=== PATIENT | female | born 1980 | race Caucasian/White ===

== ENCOUNTER 2019-06-05 11:45 | Inpatient (IN) | payer OTHER ==
[2019-06-05] VITALS (48 sets, daily range): BP systolic 57–159; BP diastolic 27–94
[~2019-06-05] VITALS: Ht 160 cm; Wt 74.1 kg
--- NOTE | 2019-06-05 12:15 | NUR ---
SPOKE WITH HUSSAIN AT [facility], INFORMATION FROM HIM CONVEYED TO ER PROVIDER, HE WILL ALSO FAX INFORMATION ON HIGH INSULIN HIGH DEXTROSE PROTOCOL FOR CALCIUM CHANNEL ROSA M OVERDOSE THAT IS NON-RESPONSIVE TO OTHER TREATMENT.
[2019-06-05 12:47] LABS: BASOPHILS 0.4 % (0-2); EOSINOPHILS 1.3 % (0-7); HEMATOCRIT 35.2 % (36.0-48.0); HEMOGLOBIN 11.3 g/dL (12-16); IMMATURE GRANULOCYTES 0.3 % (0-5); MCH 29.7 pg (26.0-34.0); MCHC 32.1 g/dL (31.0-37.0); MCV 92.4 fL (80.0-100.0); MEAN PLATELET VOLUME 9.2 fL (7.4-10.4); MONOCYTES 9.3 % (2-11); NEUTROPHILS 70.7 % (40-80); RBC 3.81 10x6/uL (4.00-5.40); RDW 13.8 % (11.5-14.5); WBC 14.2 10x3/uL (4.8-10.8)
--- NOTE | 2019-06-05 12:50 | NUR ---
THE PATIENT'S MENTAL STATUS HAS BEEN DECLINING, SHE IS NOW FALLING ASLEEP WHEN NOT DIRECTLY ENGAGED AND IS UNABLE TO FOLLOW DIRECTIONS, WHEN HER BP CUFF INFLATES SHE BECOMES COMBATIVE AND THRASHES IN THE BED, SHE IS MAINTAING HER AIRWAY, ER PROVIDER NOTIFIED OF CHANGE IN MENTAL STATUS.
[2019-06-05 12:51] LABS: ANION GAP 19.5 mmol/L (8-16); CALCIUM 8.7 mg/dL (8.5-10.1); CARBON DIOXIDE 19.1 mmol/L (21.0-32.0); CREATININE - SERUM 2.4 mg/dL (0.6-1.3); POTASSIUM - SERUM 3.6 mmol/L (3.5-5.1)
[2019-06-05 12:52] LABS: PLATELET COUNT 445 10x3/uL (130-400)
[2019-06-05 12:57] LABS: ACETAMINOPHEN 11.1 ug/mL (10.0-30.0); ALBUMIN 3.6 g/dL (3.4-5.0); BILIRUBIN - TOTAL 0.3 mg/dL (0.2-1.3)
--- NOTE | 2019-06-05 13:30 | NUR ---
AT THIS POINT THE PATIENT IS NOT RESPONSIVE TO STIMULI, HOWEVER SHE IS COMBATIVE AND WILL OPEN HER EYES WHEN TRYING TO RE-POSITION HERSELF, SHE IS IN A HEAD DOWN POSITION AT THIS TIME TO TRY AND MANAGE BLOOD PRESSURE, BUT SHE IS NOT TOLERATING WELL AND TRYING TO FIGHT STAFF, SHE CAN NOT BE RE-DIRECTED OR RE ORIENTED, HER RESPIRATIONS ARE EVEN AND UNLABORED, HER PULSE IS IN THE 30'S AND THE ER PROVIDER IS IN THE ROOM AT THIS TIME, WILL AWAIT FURTHER ORDERS.
[2019-06-05 13:51] LABS: UDS - AMPHET NEGATIVE QUAL (NEGATIVE); UDS - BARB NEGATIVE QUAL (NEGATIVE); UDS - BENZO POSITIVE QUAL (NEGATIVE); UDS - COCAINE NEGATIVE QUAL (NEGATIVE); UDS - OPIATE POSITIVE QUAL (NEGATIVE); UDS - PCP NEGATIVE QUAL (NEGATIVE); UDS - THC NEGATIVE QUAL (NEGATIVE)
[2019-06-05 14:12] LABS: BILIRUBIN NEGATIVE (NEGATIVE); GLUCOSE NEGATIVE (NEGATIVE); KETONE NEGATIVE (NEGATIVE); NITRITE NEGATIVE (NEGATIVE); UROBILINOGEN NORMAL (NORMAL)
[2019-06-05 14:13] LABS: RED CELLS - URINE RARE /hpf (0-5)
[2019-06-05 14:14] LABS: BACTERIA MODERATE /hpf (NEGATIVE); EPITHELIAL CELLS OCC /hpf (0-5); WHITE CELLS - URINE >50 /hpf (NEGATIVE)
--- NOTE | 2019-06-05 14:30 | NUR ---
ATTEMPTED EXTERNAL PACING WITH ANOTHER RN AND THE ER PROVIDER, UNABLE TO GET A CAPTURE AND PULSE TO MATCH THE SET RATE, THE PADS WERE LEFT ON THE PATIENT, BUT THE PACING WAS TURNED OFF AT THIS TIME, WILL AWAIT FURTHER ORDERS.
--- NOTE | 2019-06-05 16:12 | NUR ---
GLUCOSE 185 PRIOR TO INITIATION OF GLUCOSE AND INSULIN
--- NOTE | 2019-06-05 17:30 | NUR ---
PT RECEIVED FROM ER TO 2316. ON VENT. OGT. PT HAS RIGHT PICC AND 3 PIVS. MULTIPLE IV DRIPS, PER EMAR.
--- NOTE | 2019-06-05 18:00 | NUR ---
PUPILS REACTIVE AND SLUGGISH.
[2019-06-05 20:00] LABS: CREATININE - SERUM 2.2 mg/dL (0.6-1.3); POTASSIUM - SERUM 3.4 mmol/L (3.5-5.1)
--- NOTE | 2019-06-05 20:08 | NUR ---
PT VOMITTING/GAGGING, REACHING FOR ETT. CLOTH DYE RANGE OPERATOR SALES PROMOTION REPRESENTATIVE PAGED.
[2019-06-05 20:16] LABS: ANION GAP 20.1 mmol/L (8-16); CARBON DIOXIDE 13.3 mmol/L (21.0-32.0)
[2019-06-05 20:18] LABS: CALCIUM 13.1 mg/dL (8.5-10.1)
--- NOTE | 2019-06-05 20:44 | NUR ---
SWETHA PAGED PER PHYSICIAN CONSULT
--- NOTE | 2019-06-05 20:50 | NUR ---
LAB CONTACTED ABOUT Q30MIN SERUM POTASSIUM ORDERS.
--- NOTE | 2019-06-05 20:53 | NUR ---
REC'D CALLBACK FROM [facility], NEW ORDERS GIVEN, SEE MAR.
--- NOTE | 2019-06-05 22:20 | NUR ---
[facility]D CALL [facility], UPDATE PROVIDED.
--- NOTE | 2019-06-05 22:54 | NUR ---
HOUSE SUPERVISIOR CONTACTED AT THIS TIME REGARDING NEW ABX ORDER, PHARMACY IS CLOSED.
--- NOTE | 2019-06-05 23:20 | NUR ---
JASWINDER PAGED AT THIS TIME. PT VOMITTING-YELLOW EMESIS, GAGGING AND REACHING FOR ETT. MINIMAL SEDATION INFUSING, BILATERAL WRIST RESTRAINTS IN USE. 1:1 NURSING.
--- NOTE | 2019-06-05 23:50 | NUR ---
SECOND PAGE TO JASWINDER AT THIS TIME.
[2019-06-06] VITALS (91 sets, daily range): BP systolic 86–127; BP diastolic 35–91; Ht 160 cm; Wt 74.1 kg
--- NOTE | 2019-06-06 00:10 | NUR ---
PLASTIC SURGERY ASSISTANT ANTONY CHRISTOPHER, AT BEDSIDE. SEE MAR FOR NEW MED ORDER.
--- NOTE | 2019-06-06 00:40 | NUR ---
POTASSIUM REMAINS CRITICALLY LOW, CONTINUING POTASSIUM INFUSIONS PER PROTOCOL. ASHWIN HARDY AT BEDSIDE.
--- NOTE | 2019-06-06 03:00 | NUR ---
REASSESSMENT COMPLETE, SEE FLOWSHEET FOR ALL FINDINGS. ORAL CARE PROVIDED. PT REPOSITIONED. PRESSORS INFUSING, VSS. NO S/S OF PAIN. 1:1 NURSING.
[2019-06-06 04:18] LABS: BASOPHILS 0 % (0-2); EOSINOPHILS 0 % (0-7); IMMATURE GRANULOCYTES 0.3 % (0-5); LYMPHOCYTES 8.1 % (15-50); MCH 29.6 pg (26.0-34.0); MCHC 29.3 g/dL (31.0-37.0); MEAN PLATELET VOLUME 8.7 fL (7.4-10.4); NEUTROPHILS 85.6 % (40-80); RDW 13.7 % (11.5-14.5); WBC 13.3 10x3/uL (4.8-10.8)
[2019-06-06 04:22] LABS: HEMOGLOBIN 8.5 g/dL (12-16); PLATELET COUNT 291 10x3/uL (130-400); RBC 2.87 10x6/uL (4.00-5.40)
--- NOTE | 2019-06-06 04:30 | NUR ---
COMPLETE CHG BATH AND LINEN CHANGE PROVIDED.
[2019-06-06 06:40] LABS: ALBUMIN 2.5 g/dL (3.4-5.0); ANION GAP 13.6 mmol/L (8-16); BILIRUBIN - TOTAL 0.3 mg/dL (0.2-1.3); CALCIUM 10.8 mg/dL (8.5-10.1); CARBON DIOXIDE 19.9 mmol/L (21.0-32.0); CREATININE - SERUM 1.6 mg/dL (0.6-1.3); MAGNESIUM - SERUM 1.2 mg/dL (1.8-2.4); PHOSPHOROUS 1.7 mg/dL (2.5-4.9); PROTEIN - SERUM 5.5 g/dL (6.4-8.2)
[2019-06-06 06:41] LABS: POTASSIUM - SERUM 2.5 mmol/L (3.5-5.1)
--- NOTE | 2019-06-06 07:38 | NUR ---
DR GUTIERREZ PAGED FOR CVL PLACEMENT AND MICAELA PLACEMENT.
--- NOTE | 2019-06-06 07:54 | NUR ---
SPOKE WITH KIMBERLY MEJIA. CONSENT FOR CVL AND MICAELA GIVEN AND WITTNESSED BY JOAQUIN AUGUSTINE. DR GUTIERREZ AWARE AND ON HIS WAY FOR PROCEDURE.
--- NOTE | 2019-06-06 08:30 | NUR ---
FAMILY WAS WONDERING ABOUT SEEIN THE PATIENT. LET THEM KNOW PER PROTOCOL THAT WE WERE NOT ALLOWED TO HAVE VISITORS DUE TO PT BEING SUICIDAL. PT POSITIONED FOR COMFORT WILL CONTINEU TO MONITOR.
--- NOTE | 2019-06-06 09:51 | NUR ---
DECREASED 02 TO 35%
[2019-06-06 12:33] LABS: CALCIUM 9.5 mg/dL (8.5-10.1); CARBON DIOXIDE 23.5 mmol/L (21.0-32.0)
[2019-06-06 12:50] LABS: CREATININE - SERUM 1.1 mg/dL (0.6-1.3); PHOSPHOROUS 2.2 mg/dL (2.5-4.9)
[2019-06-06 12:52] LABS: MAGNESIUM - SERUM 0.9 mg/dL (1.8-2.4); POTASSIUM - SERUM 2.5 mmol/L (3.5-5.1)
--- NOTE | 2019-06-06 13:15 | NUR ---
DECREASED RR TO [address] BRANNON
[2019-06-06 14:50] LABS: ANION GAP 11.5 mmol/L (8-16); CALCIUM 9.3 mg/dL (8.5-10.1); CREATININE - SERUM 1.1 mg/dL (0.6-1.3)
[2019-06-06 15:14] LABS: MAGNESIUM - SERUM 1.7 mg/dL (1.8-2.4); PHOSPHOROUS 3.1 mg/dL (2.5-4.9); POTASSIUM - SERUM 4.5 mmol/L (3.5-5.1)
[2019-06-06 16:18] LABS: ANION GAP 10.9 mmol/L (8-16); CARBON DIOXIDE 21.4 mmol/L (21.0-32.0); CREATININE - SERUM 1.2 mg/dL (0.6-1.3); MAGNESIUM - SERUM 1.7 mg/dL (1.8-2.4); PHOSPHOROUS 2.5 mg/dL (2.5-4.9)
[2019-06-06 16:28] LABS: POTASSIUM - SERUM 3.3 mmol/L (3.5-5.1)
[2019-06-06 18:44] LABS: CALCIUM 8.8 mg/dL (8.5-10.1); CARBON DIOXIDE 22.8 mmol/L (21.0-32.0); CREATININE - SERUM 1.2 mg/dL (0.6-1.3); MAGNESIUM - SERUM 1.5 mg/dL (1.8-2.4); PHOSPHOROUS 2.3 mg/dL (2.5-4.9)
[2019-06-06 18:51] LABS: POTASSIUM - SERUM 2.8 mmol/L (3.5-5.1)
--- NOTE | 2019-06-06 19:00 | NUR ---
REPORT REC'D, ASSUMED PT'S CARE. ASSESSMENT COMPLETED PER FLOWSHEET. PT SEDATED ON VENT AROUSES EASILY, FALLOW COMMANDS. PPP. CONT TO MONITOR.
[2019-06-06 20:06] LABS: ANION GAP 10.4 mmol/L (8-16); CALCIUM 8.8 mg/dL (8.5-10.1); CARBON DIOXIDE 22.2 mmol/L (21.0-32.0); CREATININE - SERUM 1.1 mg/dL (0.6-1.3); MAGNESIUM - SERUM 1.4 mg/dL (1.8-2.4); PHOSPHOROUS 2.1 mg/dL (2.5-4.9); POTASSIUM - SERUM 3.6 mmol/L (3.5-5.1)
--- NOTE | 2019-06-06 21:00 | NUR ---
CONT TITRATE INSULIN AND D20 IVFLUIDS TO KEEP BS > 150.
[2019-06-06 22:34] LABS: MAGNESIUM - SERUM 1.8 mg/dL (1.8-2.4)
--- NOTE | 2019-06-06 23:00 | NUR ---
REASSESSMENT COMPLETED. SEE FLOWSHEETS FOR ALL FINDINGS, PT SEDATED ON VENT AROUSES WITH VOICES, NO ACUTE CHANGES IN PT'S STATUS NOTED AT THIS TIME, CONT TO MONITOR.
[2019-06-06 23:24] LABS: PHOSPHOROUS 1.9 mg/dL (2.5-4.9); POTASSIUM - SERUM 3.1 mmol/L (3.5-5.1)
[2019-06-07] VITALS (50 sets, daily range): BP systolic 86–121; BP diastolic 56–84
--- NOTE | 2019-06-07 01:00 | NUR ---
PT C/O OF ITCHING BACK, COMPLETE BEDBATH GIVEN WITH CHG DONE, SKIN CARE PROVIDED, LINEN AND GOWN CHANGED. CONT TITRATE INSULIN AND D20 IVFLUIDS PER ORDER. CONT TO MONITOR.
[2019-06-07 01:01] LABS: ANION GAP 7.9 mmol/L (8-16); CALCIUM 8.2 mg/dL (8.5-10.1); CARBON DIOXIDE 25.4 mmol/L (21.0-32.0); MAGNESIUM - SERUM 1.6 mg/dL (1.8-2.4); PHOSPHOROUS 1.6 mg/dL (2.5-4.9); POTASSIUM - SERUM 3.3 mmol/L (3.5-5.1)
[2019-06-07 02:53] LABS: ALBUMIN 1.9 g/dL (3.4-5.0); ANION GAP 11.1 mmol/L (8-16); BILIRUBIN - TOTAL 0.16 mg/dL (0.2-1.3); CALCIUM 8.4 mg/dL (8.5-10.1); CARBON DIOXIDE 23.3 mmol/L (21.0-32.0); CREATININE - SERUM 1.1 mg/dL (0.6-1.3); MAGNESIUM - SERUM 1.6 mg/dL (1.8-2.4); PHOSPHOROUS 1.8 mg/dL (2.5-4.9); POTASSIUM - SERUM 3.4 mmol/L (3.5-5.1); PROTEIN - SERUM 4.6 g/dL (6.4-8.2)
--- NOTE | 2019-06-07 03:00 | NUR ---
REASSESSMENT COMPLETED. SEE FLOWSHEETS FOR ALL FINDINGS. PT SEDATED ON VENT WITHOUT SIGNS OF DISTRESS. AROUSES EASILY WITH VOICES, FOLLOW COMMANDS. NO ACUTE CHANGES IN PT'S CONDITION NOTED. CONT TO COVER ELECTROLYTE PER PROTOCOL. CONT INSULIN GTT TO TITRATE FOR BS > 150. CONT TO MONITOR.
[2019-06-07 04:37] LABS: BASOPHILS 0.1 % (0-2); EOSINOPHILS 0.7 % (0-7); HEMATOCRIT 27.3 % (36.0-48.0); IMMATURE GRANULOCYTES 0.3 % (0-5); LYMPHOCYTES 11.9 % (15-50); MCH 29.8 pg (26.0-34.0); MCV 90.4 fL (80.0-100.0); MEAN PLATELET VOLUME 8.4 fL (7.4-10.4); MONOCYTES 8.4 % (2-11); NEUTROPHILS 78.6 % (40-80); PLATELET COUNT 234 10x3/uL (130-400); RBC 3.02 10x6/uL (4.00-5.40); RDW 13.6 % (11.5-14.5); WBC 15.5 10x3/uL (4.8-10.8)
[2019-06-07 04:49] LABS: ANION GAP 11.2 mmol/L (8-16); CALCIUM 7.9 mg/dL (8.5-10.1); CARBON DIOXIDE 23.2 mmol/L (21.0-32.0); MAGNESIUM - SERUM 1.8 mg/dL (1.8-2.4); PHOSPHOROUS 1.6 mg/dL (2.5-4.9); POTASSIUM - SERUM 3.4 mmol/L (3.5-5.1)
--- NOTE | 2019-06-07 05:30 | NUR ---
PT SUDDENELY STARTED VOMITING GREEN CLEAR EMESIS, HOB UP, SUCTIONED. CALLED ANTONY Oakes APN AND NOTIFED, ORDER TO GIVE 5MG COMPAZINE IVP. WILL CONT TO MONITOR.
--- NOTE | 2019-06-07 06:00 | NUR ---
[facility], HUSSAIN CALLED FOR UPDATE. HE ADVISED TO TRY TO WEAN INSULIN AND EPI OFF TO DAY, TITRATE D20.WILL CALL BACK WITH ANY QUESTIONS.
[2019-06-07 07:06] LABS: ANION GAP 10.4 mmol/L (8-16); BILIRUBIN - TOTAL 0.1 mg/dL (0.2-1.3); CALCIUM 8.2 mg/dL (8.5-10.1); CARBON DIOXIDE 23.3 mmol/L (21.0-32.0); PHOSPHOROUS 1.7 mg/dL (2.5-4.9); POTASSIUM - SERUM 3.7 mmol/L (3.5-5.1); PROTEIN - SERUM 4.6 g/dL (6.4-8.2)
[2019-06-07 08:21] LABS: ANION GAP 10.3 mmol/L (8-16); CALCIUM 8.2 mg/dL (8.5-10.1); CARBON DIOXIDE 24.2 mmol/L (21.0-32.0); MAGNESIUM - SERUM 1.9 mg/dL (1.8-2.4); PHOSPHOROUS 1.7 mg/dL (2.5-4.9); POTASSIUM - SERUM 3.5 mmol/L (3.5-5.1)
--- NOTE | 2019-06-07 09:58 | NUR ---
Nutrition follow-up: Pt intubated, sedated Pressors in use Labs reviewed Wt: 134# Pt remains NPO Will need nutrition support started within 24 hours if pt remains intubated. RDN following.
[2019-06-07 10:35] LABS: ANION GAP 7.7 mmol/L (8-16); CALCIUM 8.1 mg/dL (8.5-10.1); CARBON DIOXIDE 26.5 mmol/L (21.0-32.0); CREATININE - SERUM 0.9 mg/dL (0.6-1.3); MAGNESIUM - SERUM 1.7 mg/dL (1.8-2.4); PHOSPHOROUS 1.9 mg/dL (2.5-4.9); POTASSIUM - SERUM 3.2 mmol/L (3.5-5.1)
[2019-06-07 13:28] LABS: ANION GAP 9.4 mmol/L (8-16); CALCIUM 8.2 mg/dL (8.5-10.1); CARBON DIOXIDE 25.4 mmol/L (21.0-32.0); CREATININE - SERUM 0.9 mg/dL (0.6-1.3); MAGNESIUM - SERUM 1.6 mg/dL (1.8-2.4)
[2019-06-07 13:34] LABS: PHOSPHOROUS 4.3 mg/dL (2.5-4.9); POTASSIUM - SERUM 3.8 mmol/L (3.5-5.1)
[2019-06-07 15:53] LABS: ANION GAP 8.8 mmol/L (8-16); CALCIUM 7.9 mg/dL (8.5-10.1); CARBON DIOXIDE 25.8 mmol/L (21.0-32.0); CREATININE - SERUM 0.9 mg/dL (0.6-1.3); MAGNESIUM - SERUM 1.5 mg/dL (1.8-2.4); PHOSPHOROUS 3.9 mg/dL (2.5-4.9); POTASSIUM - SERUM 3.6 mmol/L (3.5-5.1)
--- NOTE | 2019-06-07 16:17 | NUR ---
NOT ABLE TO DO SUICIDE ASSESSMENT DUE PT LETHARGY.
--- NOTE | 2019-06-07 17:51 | MORECARE ---
CASE MANAGEMENT DISCHARGE SUMMARY PATIENT: XAVIER MEJIA UNIT: [id number] ADM DATE: 06/05/19 AGE: 39 : [birth year] SEX: F [facility] AUTHOR: JOSSUE OBRIEN PHYSICIAN: REFERRING PHYSICIAN: JESSICA SAN MD DATE OF SERVICE: 06/07/19 Discharge Plan Patient Name: XAVIER MEJIA Facility: [facility]:[place] : 1980 Planned Disposition: Anticipated Discharge Date: Discharge Date: Expected LOS: Initial Reviewer: [email or web address] Initial Review Date: 06/05/2019 Generated: 06/07/19 6:51 pm DCPIA - Discharge Planning Initial Assessment Updated by [email or web address]: Jessica Boston on 06/07/19 5:48 pm * Is the patient Alert and Oriented? Yes * How many steps to enter\exit or inside your home? Patient Name: XAVIER MEJIA Page [id number] at 1751 All edits/amendments must be made on the electronic document DICTATION DATE: 06/07/191750 GED INSTRUCTOR: LLOYD 06/07/191750 RPT#: [id number] DC DATE: STATUS: ADM IN [facility] [address] [place] [address] END OF REPORT
--- NOTE | 2019-06-07 18:21 | NUR ---
UNABLE TO COMPLETE SUICIDE ASSESSMENT AT THIS TIME DUE TO PATIENT SLEEPING.
[2019-06-07 19:00] LABS: ANION GAP 9.5 mmol/L (8-16); CALCIUM 8.2 mg/dL (8.5-10.1); CREATININE - SERUM 0.9 mg/dL (0.6-1.3); MAGNESIUM - SERUM 1.4 mg/dL (1.8-2.4); PHOSPHOROUS 3.2 mg/dL (2.5-4.9); POTASSIUM - SERUM 3.5 mmol/L (3.5-5.1)
--- NOTE | 2019-06-07 19:00 | NUR ---
ASSESSMENT COMPLETED. LAYING BACK IN BED. A/O X4. BREATHING ROOM AIR. ABLE TO PULL SELF UP IN BED. C/O NAUSEA
[2019-06-07 20:39] LABS: CALC OSMOLALITY 273 mosm/kg (275-300); CALCIUM 7.8 mg/dL (8.5-10.1); CARBON DIOXIDE 24.5 mmol/L (21.0-32.0); CHLORIDE - SERUM 106 mmol/L (98-107); CREATININE - SERUM 0.8 mg/dL (0.6-1.3); MAGNESIUM - SERUM 1.3 mg/dL (1.8-2.4); PHOSPHOROUS 2.7 mg/dL (2.5-4.9); POTASSIUM - SERUM 3.6 mmol/L (3.5-5.1); SODIUM 137 mmol/L (136-145); UREA NITROGEN 7 mg/dL (7-18); eGFR NON AFRICAN AMERICAN 84 mL/min (90-120)
[2019-06-07 20:42] LABS: GLUCOSE 135 mg/dL (74-106)
--- NOTE | 2019-06-07 21:00 | NUR ---
PT REPOSITIONING SELF. CONT 1:1 SITTER. CALL LIGHT IN REACH. C/O HEADACHE AND GENERALIZED PAIN.
--- NOTE | 2019-06-07 23:00 | NUR ---
RE-ASSESSMENT COMPLETED. PT EATING CRACKERS AND DRINKING JUICE.
[2019-06-08] VITALS (17 sets, daily range): BP systolic 93–131; BP diastolic 61–97
--- NOTE | 2019-06-08 01:00 | NUR ---
EYES CLOSED, EASILY WAKES. CALL LIGHT IN REACH.
--- NOTE | 2019-06-08 03:00 | NUR ---
RE-ASSESSMENT COMPLETED. NO CHANGES SINCE LAST ASSESSMENT.
--- NOTE | 2019-06-08 05:00 | NUR ---
C/O HEADACHE AND NAUSEA AGAIN. PRN PHENERGAN AND TYLENOL GIVEN PER ORDERS. REFUSED BATH AT THIS TIME. ASKED PATIENT 4 TIMES THROUGHOUT THE NIGHT AND EACH TIME PATIENT SAID NOT AT THIS TIME, MAYBE LATER
[2019-06-08 05:08] LABS: BASOPHILS 0.2 % (0-2); EOSINOPHILS 1.1 % (0-7); HEMATOCRIT 27.4 % (36.0-48.0); HEMOGLOBIN 8.8 g/dL (12-16); IMMATURE GRANULOCYTES 0.2 % (0-5); LYMPHOCYTES 20.3 % (15-50); MCH 29.8 pg (26.0-34.0); MCHC 32.1 g/dL (31.0-37.0); MEAN PLATELET VOLUME 8.5 fL (7.4-10.4); MONOCYTES 9.4 % (2-11); NEUTROPHILS 68.8 % (40-80); RBC 2.95 10x6/uL (4.00-5.40); RDW 13.6 % (11.5-14.5)
[2019-06-08 05:16] LABS: MCV 92.9 fL (80.0-100.0); PLATELET COUNT 169 10x3/uL (130-400); WBC 9.9 10x3/uL (4.8-10.8)
[2019-06-08 05:40] LABS: ALKALINE PHOSPHATASE 75 U/L (30-120); ALT (SGPT) 46 U/L (10-68); BILIRUBIN - TOTAL 0.15 mg/dL (0.2-1.3); CALCIUM 7.9 mg/dL (8.5-10.1); CARBON DIOXIDE 25.8 mmol/L (21.0-32.0); CHLORIDE - SERUM 111 mmol/L (98-107); CREATININE - SERUM 0.8 mg/dL (0.6-1.3); PROTEIN - SERUM 4.7 g/dL (6.4-8.2); SODIUM 142 mmol/L (136-145); UREA NITROGEN 8 mg/dL (7-18); eGFR NON AFRICAN AMERICAN 84 mL/min (90-120)
--- NOTE | 2019-06-08 05:47 | NUR ---
TOOK OUT PIV IN LEFT AC AND LEFT UPPER ARM. TIP INTACT TO BOTH.
[2019-06-08 05:48] LABS: CALC OSMOLALITY 279 mosm/kg (275-300); GLUCOSE 80 mg/dL (74-106); POTASSIUM - SERUM 4.7 mmol/L (3.5-5.1)
--- NOTE | 2019-06-08 07:00 | NUR ---
BEDSIDE REPORT RECEIVED. SHIFT ASSESSMENT COMPLETED PER FLOWSHEET, SEE FLOWSHEET FOR INFORMATION. UPON ASSESSMENT PT STATES SHE IS HURTING AND NEEDS PAIN MEDICINE, INFORMED HER THAT IT IS NOT TIME FOR TYLENOL, SHE CAN HAVE IT AGAIN AT 1100. VERBALIZED UNDERSTANDING, NO ACUTE NEEDS OR DISTRESS NOTED AT THIS TIME. VSS. WILL CONT TO MONITOR.
--- NOTE | 2019-06-08 09:00 | NUR ---
0900 MEDICATIONS AND BREAKFAST TRAY GIVEN, PT REFUSED BREAKFAST TRAY STATING "I'M NOT HUNGRY" VSS. PT DENIES ANY ACUTE NEEDS OR DISTRESS NOTED AT THIS TIME. WILL CONT TO MONITOR.
--- NOTE | 2019-06-08 11:00 | NUR ---
REASSESSMENT COMPLETED PER FLOWSHEET, SEE FLOWSHEET FOR INFORMATION. CHG BEDBATH GIVEN. PT DENIES ANY ACUTE NEEDS OR DISTRESS NOTED AT THIS TIME. VSS. WILL CONT TO MONITOR.
--- NOTE | 2019-06-08 13:00 | NUR ---
PT RESTING IN BED WITH EYES CLOSED. WILL CONT TO MONITOR.
--- NOTE | 2019-06-08 14:40 | NUR ---
REPORT CALLED TO [facility] ON MED 1. WILL TRANSFER TO ROOM 2109. NO ACUTE NEEDS OR DISTRESS NOTED AT THIS TIME.
--- NOTE | 2019-06-08 16:19 | NUR ---
TRANSFERED FROM ICU BY BED. SITTER AT BS. OREINTED TO ROOM. CALL LIGHT IN REACH. WILL CONT. PLAN OF CARE.
[2019-06-08 18:08] LABS: ACID FAST SMEAR Negative (()); AFB SPECIMEN PROCESSING Concentration (())
[2019-06-09 01:35] VITALS: BP 133/92
[2019-06-09 05:11] VITALS: BP 130/89
[2019-06-09 05:47] LABS: BASOPHILS 0.3 % (0-2); EOSINOPHILS 2.7 % (0-7); HEMATOCRIT 25.4 % (36.0-48.0); HEMOGLOBIN 8.2 g/dL (12-16); IMMATURE GRANULOCYTES 0.1 % (0-5); LYMPHOCYTES 23.8 % (15-50); MCHC 32.3 g/dL (31.0-37.0); MEAN PLATELET VOLUME 8.6 fL (7.4-10.4); MONOCYTES 6.8 % (2-11); NEUTROPHILS 66.3 % (40-80); PLATELET COUNT 173 10x3/uL (130-400); RBC 2.73 10x6/uL (4.00-5.40); RDW 13.3 % (11.5-14.5); WBC 7.5 10x3/uL (4.8-10.8)
[2019-06-09 06:00] LABS: ALBUMIN 2.3 g/dL (3.4-5.0); ALKALINE PHOSPHATASE 92 U/L (30-120); ALT (SGPT) 38 U/L (10-68); BILIRUBIN - TOTAL 0.13 mg/dL (0.2-1.3); CALCIUM 7.9 mg/dL (8.5-10.1); CARBON DIOXIDE 25.2 mmol/L (21.0-32.0); CHLORIDE - SERUM 108 mmol/L (98-107); CREATININE - SERUM 0.8 mg/dL (0.6-1.3); GLUCOSE 100 mg/dL (74-106); MAGNESIUM - SERUM 1.7 mg/dL (1.8-2.4); PROTEIN - SERUM 4.8 g/dL (6.4-8.2); SODIUM 141 mmol/L (136-145); eGFR NON AFRICAN AMERICAN 84 mL/min (90-120)
[2019-06-09 06:11] LABS: CALC OSMOLALITY 279 mosm/kg (275-300); UREA NITROGEN 11 mg/dL (7-18)
[2019-06-09 09:14] VITALS: BP 140/93
--- NOTE | 2019-06-09 09:41 | NUR ---
PT AWAKE AND ORIENTED. C/O NAUSEA, REQUETING PHENERGAN SOON IT'S AVALIABLE. SITTER AT BEDSIDE. NO COMPLAINTS OR CONCERNS AT THIS TIME. CL IN REACH, SRX2.
[2019-06-09 12:00] VITALS: BP 137/92
--- NOTE | 2019-06-09 15:10 | NUR ---
PT AWAKE AND ORIENTED, GOT UP WITH TECH IN ROOM FOR SHOWER. BED LINNENS CHANGED. STATES SHE'S FEELING BETTER NOW. MOTHER IN ROOM. CL IN REACH, SRX2.
[2019-06-09 16:42] VITALS: BP 120/99
--- NOTE | 2019-06-09 17:00 | NUR ---
I have reviewed this patient and I concur with the Shift Assessment completed by the Licensed Practical Nurse today this shift.
--- NOTE | 2019-06-09 17:46 | NUR ---
PT AWAKE AND ORIENTED, C/O NOT ROUNDING TO SEE HER YET BEING THAT IT IS ALMOST 1800. ASSURED PT HE WOULD ROUND. CL IN REACH, SRX2.
--- NOTE | 2019-06-09 18:51 | NUR ---
D/C'D GARVIN PER MD VERBAL REQUEST. PT IS RELIEVED. INFORMED TO NOTIFY US WHEN SHE URINATES NEXT.
--- NOTE | 2019-06-09 19:17 | NUR ---
AWAKE WITH SITTER IN PLACE PT EXPRESSES NEEDS AND THOSE ARE SEEN TO BED LOW AND LOCKED CALL LIGHT IS WITH PT
[2019-06-09 20:00] VITALS: BP 148/101
[2019-06-10] VITALS: BP 165/118
[2019-06-10 05:20] LABS: BASOPHILS 0.1 % (0-2); EOSINOPHILS 2.2 % (0-7); IMMATURE GRANULOCYTES 0.4 % (0-5); LYMPHOCYTES 35.3 % (15-50); MCH 29.6 pg (26.0-34.0); MCV 92.6 fL (80.0-100.0); MONOCYTES 9.4 % (2-11); NEUTROPHILS 52.6 % (40-80); PLATELET COUNT 194 10x3/uL (130-400); WBC 6.7 10x3/uL (4.8-10.8)
[2019-06-10 07:18] LABS: ALBUMIN 2.3 g/dL (3.4-5.0); ALKALINE PHOSPHATASE 107 U/L (30-120); ALT (SGPT) 31 U/L (10-68); BILIRUBIN - TOTAL 0.11 mg/dL (0.2-1.3); CALC OSMOLALITY 288 mosm/kg (275-300); CALCIUM 7.8 mg/dL (8.5-10.1); CARBON DIOXIDE 23.9 mmol/L (21.0-32.0); CHLORIDE - SERUM 113 mmol/L (98-107); CREATININE - SERUM 0.8 mg/dL (0.6-1.3); GLUCOSE 97 mg/dL (74-106); MAGNESIUM - SERUM 1.7 mg/dL (1.8-2.4); PROTEIN - SERUM 5.3 g/dL (6.4-8.2); SODIUM 145 mmol/L (136-145); UREA NITROGEN 12 mg/dL (7-18); eGFR NON AFRICAN AMERICAN 84 mL/min (90-120)
--- NOTE | 2019-06-10 08:06 | OP ---
PATIENT NAME: XAVIER MEJIA MEDICAL RECORD: [id number] :[birth year] LOCATION:D.M2 D.2109 ADMISSION DATE:06/05/19 SURGEON: NAMITA BULLARD MD DATE OF OPERATION: 06/06/2019 PREOPERATIVE DIAGNOSES: 1. Calcium channel scott overdose. 2. Hypotension. 3. Acute respiratory failure. 4. Acute renal failure. POSTOPERATIVE DIAGNOSES: 1. Calcium channel scott overdose. 2. Hypotension. 3. Acute respiratory failure. 4. Acute renal failure. PROCEDURE: Right subclavian vein triple-lumen central venous line placement. SURGEON: Namita Bullard MD REPORT OF PROCEDURE: The patient's right chest was prepped and draped in sterile fashion. A total of 5 cc of 1% lidocaine was infused into the subcutaneous tissues. A needle was used to cannulate the right subclavian vein and a guidewire was advanced. We had some difficulty with passing the wire, but was able to pass it deep into the patient and eventually was able to pass the dilator and the triple-lumen catheter. This catheter was sutured into place with 4-0 nylons and dressed appropriately. X-ray postoperatively showed that the catheter was extending through the subclavian vein and up the neck into the right jugular. At this point, we took down the dressing and reprepped the area including the indwelling catheter. Once we passed a 0.035 Glidewire through the catheter and was able to pull this back and eventually manipulate the wire down to where we could see some EKG changes. We passed the catheter back over this wire and removed the wire. At this point, a repeat x-ray showed that the catheter tip was now resting comfortably in the superior vena cava. A new dressing was then applied. COMPLICATIONS: None. CONDITION: Stable. ANESTHESIA: General endotracheal and local. BLOOD LOSS: 30 mL. Procedure done in the ICU at the bedside. TRANSINT:[id number] Voice Confirmation ID: [id number] DOCUMENT ID: [id number] OPERATIVE REPORT [id number] XAVIER MEJIA CHRISTIAN MD at 0806 CC: [id number] DICTATION DATE: 06/07/19 0752 COMPUTER SYSTEMS ADMINISTRATOR: 06/07/19 0937 ADM IN [place] [id number] [place] [address]
[2019-06-10 08:34] VITALS: BP 124/85
[2019-06-10 11:09] LABS: FUNGUS STAIN Final report (())
[2019-06-10 12:00] VITALS: BP 142/101
--- NOTE | 2019-06-10 12:11 | NUR ---
PT AWAKE AND ORIENTED, STATES SHE SLEPT BETTER THAN USUAL LAST NIGHT. SHE IS HOPEFUL TO GO WHEREVERS NEXT TODAY, ACCORDING TO Geovani IT WILL LIKELY BE TOMORROW, INFORMED PT. SITTER AT BEDSIDE. CHANGED PTS LINNE, SHE LOST HER PHONE DURING THE PROCESS BUT IT WAS FOUND SHORTLY AFTER IN THE LINNENS. NOW BACK IN PTS POSSESION. NO COMPLAINTS OR CONCERNS AT THIS ITME. CL INR EACH,S RX2.
--- NOTE | 2019-06-10 13:37 | CN ---
PATIENT NAME:XAVIER MEJIA MEDICAL RECORD: [id number] : [birth year] LOCATION:DSarai D.2110 ADMIT DATE: 06/05/19 ACCOUNT: [id number] CONSULTING PHYSICIAN: ROSANNA MENSAH MD REFERRING PHYSICIAN: JESSICA SAN MD DATE OF CONSULTATION: 06/06/2019 Psychiatry Consultation IDENTIFYING DATA: The patient is 39 years old and she is admitted to the hospital secondary to an overdose. CHIEF COMPLAINT: None. HISTORY OF PRESENT ILLNESS: The patient apparently took a polysubstance overdose consisting of a calcium channel scott, steroids and an antipsychotic. She currently is on a ventilator and unable to interact with me in any significant or meaningful way. Her urine drug screen on admission was positive for an opiate and a benzodiazepine. She apparently also has a history of bipolar disorder. ASSESSMENT: 1. Status post overdose. 2. History of bipolar disorder. PLAN: I will return and interview the patient when she is extubated and awake and alert enough to be properly interviewed. At this point, I doubt that there are circumstances that she can explain to me that would cause me to change my recommendation. My recommendation is that once medically stabilized, she be sent to an inpatient psychiatric facility for additional treatment. TRANSINT:[id number] Voice Confirmation ID: [id number] DOCUMENT ID: [id number] ROSANNA MENSAH MD at 1337 CC: [id number] DICTATION DATE: 06/06/19 1656 POOL FINISHER: 06/07/19 0134 ADM IN [place] [id number] [place] [address]
--- NOTE | 2019-06-10 13:37 | CN ---
PATIENT NAME:XAVIER MEJIA MEDICAL RECORD: [id number] : [birth year] LOCATION:DSarai D.2109 ADMIT DATE: 06/05/19 ACCOUNT: [id number] CONSULTING PHYSICIAN: ROSANNA MENSAH MD REFERRING PHYSICIAN: JESSICA SAN MD DATE OF CONSULTATION: 06/09/2019 IDENTIFYING DATA: A 39-year-old female who has been admitted to room 0 after intentional suicidal attempt with overdose of medication. SUBJECTIVE: The patient reports she had a lot going on. She has family issues with her children. She has had a in the family. The patient reports that she has a long history of bipolar. She also has multiple medical problems. She also suffers with a history of trauma and also insomnia. The patient reports that prior to her ingestion of the medication she had not slept for greater than 3 days. She was having some auditory and visual hallucination. She also reports that she is a rapid cycler and was in a manic phase. The patient reports that she in the past was a therapist who has not worked for the last 2 years. There is some financial stress. The patient has had previous inpatient stays. The patient has also had previous suicidal attempt, the last one was about 6 years ago. OBJECTIVE: The patient is alert to person, place, time and situation. Her general appearance is slightly disheveled. Appropriate for situation. Her speech is soft, low tone, low volume. Her associations are intact. Her eye contact is good. Her judgment and insight is slightly impaired. Thought and concentration, the patient has some circumstantial thoughts, her mood is depressed, slightly anxious and easily agitated. Her affect is restricted. Her anxiety is moderate. Her memory, no problems. The patient states she does not appear to be attending. The patient's judgment and insight is poor. Impulsivity is high. IMPRESSION: History of bipolar manic depression and insomnia. PLAN: Would be patient does consent and would want for inpatient psychiatric treatment. The patient states that she prefers either to go to [facility] or [facility], [facility] Inpatient would be her primary choice as she resides here and has family here. The patient also reports that she has had no sleep. Discussed her medical issues. So recommend an inpatient voluntary stay after she is medically stable. TopofForm Dictated By: Janee Tam APN I have interviewed/examined the above patient and agree with these documented findings. TRANSINT:[id number] Voice Confirmation ID: [id number] DOCUMENT ID: [id number] Dictated By: JANEE TAM I have interviewed/examined the above patient and agree with these documented findings. CONSULT REPORT [id number] XAVIER MEJIA, ROSANNA MALIK at 1337 CC: [id number] DICTATION DATE: 06/09/19 1636 CENTRIFUGAL CHILLER TECHNICIAN: 06/09/19 1855 ADM IN [place] [id number] [place] [id number]
--- NOTE | 2019-06-10 14:04 | NUR ---
I have reviewed this patient and I concur with the Shift Assessment completed by the Licensed Practical Nurse today this shift.
[2019-06-10 15:45] VITALS: BP 151/103
--- NOTE | 2019-06-10 17:21 | NUR ---
pt still admits to some depression but denies si at this time. sitter at bedside for suicide risk monitoring.
--- NOTE | 2019-06-10 17:38 | MORECARE ---
CASE MANAGEMENT DISCHARGE SUMMARY PATIENT: XAVIER MEJIA UNIT: [id number] ADM DATE: 06/05/19 AGE: 39 : [birth year] SEX: F ROOM/BED: D.2080 AUTHOR: JOSSUE OBRIEN PHYSICIAN: REFERRING PHYSICIAN: JESSICA SAN MD DATE OF SERVICE: 06/10/19 Discharge Plan Patient Name: XAVIER MEJIA Facility: [facility]:[place] : 1980 Planned Disposition: Inpatient Psych Facility Anticipated Discharge Date: 06/10/19 Discharge Date: Expected LOS: 5 Initial Reviewer: [email or web address] Initial Review Date: 06/05/2019 Generated: 06/10/19 6:37 pm DCP- Discharge Planning Updated by [email or web address]: Jessica Boston on 06/07/19 3:[address] Patient Name: XAVIER MEJIA Admission Status: ER Accout number: [id number] Admission Date: 06-05-2019 : 1980 Admission Diagnosis: Attending: JESSICA DIAZ Current LOS: 2 Anticipated DC Date: Planned Disposition: Primary Insurance: [employer] MA[employer]GED MEDICAID Discharge Planning Comments: PATIENT IS CURRENTLY ON VENT WITH POSSIBLE EXTUBATION LATER TODAY. PLAN FOR INPATIENT PSYCH PLACEMENT ONCE MEDICALLY STABLE. CM WILL CONTINUE TO FOLLOW AND ASSIST NEEDED WITH DISCHARGE PLANNING / NEEDS. Retail Analyst: Jessica Boston DCPIA - Discharge Planning Initial Assessment Updated by [email or web address]: Jessica Boston on 06/07/19 5:48 pm * Is the patient Alert and Oriented? Yes * How many steps to enter\exit or inside your home? External Providers External Provider: [facility] Next Contact Date: 06/10/2019 Service Request Date: Service Type: Resolution: Reviewer: Comments: Last DP export: 06/07/19 3:51 pm Patient Name: XAVIER MEJIA Page [phone] at 1737 All edits/amendments must be made on the electronic document DICTATION DATE: 06/10/191736 GROUP ACTIVITIES AIDE: LLOYD 06/10/191736 RPT#: [id number] DC DATE: STATUS: ADM IN [facility] [address] [place] [address] END OF REPORT
--- NOTE | 2019-06-10 17:45 | MORECARE ---
CASE MANAGEMENT DISCHARGE SUMMARY PATIENT: XAVIER MEJIA UNIT: [id number] ADM DATE: 06/05/19 AGE: 39 : [birth year] SEX: F ROOM/BED: D.[facility]0 AUTHOR: CAMILLE,DOC PHYSICIAN: REFERRING PHYSICIAN: JESSICA SAN MD DATE OF SERVICE: 06/10/19 Discharge Plan Patient Name: XAVIER MEJIA Facility: [facility]:[place] : 1980 Planned Disposition: Inpatient Psych Facility Anticipated Discharge Date: 06/10/19 Discharge Date: Expected LOS: 5 Initial Reviewer: [email or web address] Initial Review Date: 06/05/2019 Generated: 06/10/19 6:44 pm Comments DCP- Discharge Planning Updated by [email or web address]: Jeremy Mckeon on 06/10/19 4:[address] Patient Name: XAVIER MEJIA Encounter No: [id number] : 1980 Primary Insurance: [employer] MANAGED MEDICAID Anticipated DC Date: 06-10-2019 Planned Disposition: Inpatient Psych Facility External Planned Provider: FIRST ACCEPTING INPATIENT [facility]YCHIATRIC [facility]AC[facility] DCP follow-up note: CM SPOKE TO DR. RAJPUT IN CARE TEAM MEETING, [facility] CM CALLED [facility], , SPOKE TO [facility] AND PROVIDED REFERRAL INFORMATION. CM FAXED PLACEMENT PACKET TO [facility], . PT IS VOLUNTARY ADMIT. CM WAITING ACCEPTING INPATIENT PSYCHIATRIC FACILITY. GUILLERMINA Graves DCP- Discharge Planning Updated by [email or web address]: Jessica Boston on 06/07/19 3:[address] Patient Name: XAVIER MEJIA Admission Status: ER Accout number: [id number] Admission Date: 06-05-2019 : 1980 Admission Diagnosis: Attending: JESSICA DIAZ Current LOS: 2 Anticipated DC Date: Planned Disposition: Primary Insurance: [employer] MANAGED MEDICAID Discharge Planning Comments: PATIENT IS CURRENTLY ON VENT WITH POSSIBLE EXTUBATION LATER TODAY. PLAN FOR INPATIENT PSYCH PLACEMENT ONCE MEDICALLY STABLE. CM WILL CONTINUE TO FOLLOW AND ASSIST NEEDED WITH DISCHARGE PLANNING / NEEDS. Security Administrator: Jessica Boston DCPIA - Discharge Planning Initial Assessment Updated by [email or web address]: Jessica Boston on 06/07/19 5:48 pm * Is the patient Alert and Oriented? Yes * How many steps to enter\exit or inside your home? Last DP export: 06/10/19 4:38 pm Patient Name: XAVIER MEJIA Page [phone] at 1745 All edits/amendments must be made on the electronic document DICTATION DATE: 06/10/191743 CORPORATE LOGISTICS MANAGER: LLOYD 06/10/191743 RPT#: [id number] DC DATE: STATUS: ADM IN [facility] [address] [place] [address] END OF REPORT
--- NOTE | 2019-06-10 19:22 | NUR ---
PT IS VERY FOCUSED ON WHEN SHE WILL GET HER PRN MEDS WELL NIGHT DOSES NEEDS SEEN TOO SITTER IS PRESENT IN ROOM AND BED IS LOW AND LOCKED CALL LIGHT IS IN REACH
[2019-06-10 20:48] VITALS: BP 147/96
[2019-06-11 00:12] VITALS: BP 144/98
--- NOTE | 2019-06-11 03:33 | NUR ---
I have reviewed this patient and I concur with the Shift Assessment completed by the Licensed Practical Nurse today this shift.
[2019-06-11 03:45] VITALS: BP 149/109
[2019-06-11 04:17] LABS: BASOPHILS 0.3 % (0-2); EOSINOPHILS 4.2 % (0-7); HEMATOCRIT 24.9 % (36.0-48.0); HEMOGLOBIN 7.9 g/dL (12-16); IMMATURE GRANULOCYTES 1.2 % (0-5); LYMPHOCYTES 31.3 % (15-50); MCH 29.5 pg (26.0-34.0); MCHC 31.7 g/dL (31.0-37.0); MCV 92.9 fL (80.0-100.0); MEAN PLATELET VOLUME 8.7 fL (7.4-10.4); MONOCYTES 12.6 % (2-11); NEUTROPHILS 50.4 % (40-80); PLATELET COUNT 185 10x3/uL (130-400); RBC 2.68 10x6/uL (4.00-5.40); RDW 13.1 % (11.5-14.5); WBC 7.6 10x3/uL (4.8-10.8)
[2019-06-11 04:45] LABS: CALC OSMOLALITY 284 mosm/kg (275-300); CALCIUM 7.5 mg/dL (8.5-10.1); CARBON DIOXIDE 22.1 mmol/L (21.0-32.0); CHLORIDE - SERUM 111 mmol/L (98-107); CREATININE - SERUM 0.8 mg/dL (0.6-1.3); GLUCOSE 106 mg/dL (74-106); MAGNESIUM - SERUM 1.8 mg/dL (1.8-2.4); PHOSPHOROUS 2.9 mg/dL (2.5-4.9); POTASSIUM - SERUM 3.4 mmol/L (3.5-5.1); SODIUM 143 mmol/L (136-145); UREA NITROGEN 12 mg/dL (7-18); eGFR NON AFRICAN AMERICAN 84 mL/min (90-120)
--- NOTE | 2019-06-11 07:00 | NUR ---
RECEIVED REPORT. ASSUMED CARE OF PATIENT. PATIENT RESTING IN BED WITH EYES OPEN. RESP EVEN AND UNLABORED. SITTER AT BEDSIDE. NO DISTRESS.
--- NOTE | 2019-06-11 07:44 | NUR ---
PICC LINE DRESSING TO RIGHT UPPER ARM CHANGED AT THIS TIME DUE TO EDGES WERE NOT SECURE. BIOPATCH FILM VISIBLE IN CLEAR WINDOW. PATIENT STATES IF SHE IS ASLEEP AND HER TRANSFER STATUS IS UPDATED, TO WAKE UP HER. PATIENT ALSO STATES SHE WILL NOT GO TO [facility], QUOTE" I REFUSE TO GO TO [facility]". THIS DIRECTOR OF MOBILE MARKETING STATES SHE HAS NO CONTROL OVER WHICH FACILITY ACCEPTS. PATIENT RESTING IN BED. NO DISTRESS. SITTER AT BEDSIDE.
--- NOTE | 2019-06-11 08:55 | NUR ---
MEDICATED WITH TYLENOL. NO DISTRESS.
--- NOTE | 2019-06-11 09:03 | MORECARE ---
CASE MANAGEMENT DISCHARGE SUMMARY PATIENT: XAVIER MEJIA UNIT: [id number] ADM DATE: 06/05/19 AGE: 39 : [birth year] SEX: F ROOM/BED: D.2110 AUTHOR: CAMILLE,DOC PHYSICIAN: REFERRING PHYSICIAN: JESSICA SAN MD DATE OF SERVICE: 06/11/19 Discharge Plan Patient Name: XAVIER MEJIA Facility: [facility]:[place] : 1980 Planned Disposition: Inpatient Psych Facility Anticipated Discharge Date: 06/10/19 Discharge Date: Expected LOS: 5 Initial Reviewer: [id number] Initial Review Date: 06/05/2019 Generated: 06/11/19 10:02 am Comments DCP- Discharge Planning Updated by [email or web address]: Jeremy Mckeon on 06/11/19 7:[address] Patient Name: XAVIER MEJIA Encounter No: [id number] : 1980 Primary Insurance: [employer]OV[employer] MANAGED MEDICAID Anticipated DC Date: 06-10-2019 Planned Disposition: Inpatient Psych Facility External Planned Provider: FIRST ACCEPTING INPATIENT [facility]IATRIC FAC[facility] DCP follow-up note: CM SPOKE TO BEDSIDE NURSE WHO INFORMED CM THAT PT DOES NOT WANT TO GO TO [facility]. CM MET WITH PT IN ROOM WHO EXPLAINED THAT SHE DATED A MAN WHO STILL WORKS AT THE [facility]; PT REPORTS SHE WILL GO TO ANY OTHER FACILITY [facility] AND THAT HER PARENTS WILL PROVIDE TRANSPORTATION HOME AT DISCHARGE FROM INPATIENT PSYCHIATRIC CARE. PT CONTINUES TO BE A VOLUNTARY ADMIT. CM CALLED [facility]SF[facility] [place], , SPOKE TO AURORA WHO WILL CONTINUE TO SEEK PLACEMENT AND WILL NOTE TO PT'S TRANSFER REQUEST THAT SHE WILL NOT GO TO [facility] IN [place]. CM WAITING ACCEPTING INPATIENT PSYCHIATRIC FACILITY. Jeremy Mckeon, CASE GURWINDER DCP- Discharge Planning Updated by [id number]: Jeremy Mckeon on 06/10/19 4:[address] Patient Name: XAVIER MEJIA Encounter No: [id number] : 1980 Primary Insurance: [employer]OV[employer]YS MANAGED MEDICAID Anticipated DC Date: 06-10-2019 Planned Disposition: Inpatient Psych Facility External Planned Provider: FIRST ACCEPTING INPATIENT [facility]IATRIC [facility] DCP follow-up note: DAISY SPOKE TO DR. RAJPUT IN CARE TEAM MEETING, [facility] CM CALLED [facility], , SPOKE TO ADORE AND PROVIDED REFERRAL INFORMATION. CM FAXED PLACEMENT PACKET TO [facility], . PT IS VOLUNTARY ADMIT. CM WAITING ACCEPTING INPATIENT PSYCHIATRIC FACILITY. Jeremy Mckeon, CASE MANAGEMENT DCP- Discharge Planning Updated by [id number]: Jessica Boston on 06/07/19 3:[address] Patient Name: XAVIER MEJIA Admission Status: ER Accout number: [id number] Admission Date: 06-05-2019 : 1980 Admission Diagnosis: Attending: JESSICA DIAZ Current LOS: 2 Anticipated DC Date: Planned Disposition: Primary Insurance: [employer] MANAGED MEDICAID Discharge Planning Comments: PATIENT IS CURRENTLY ON VENT WITH POSSIBLE EXTUBATION LATER TODAY. PLAN FOR INPATIENT PSYCH PLACEMENT ONCE MEDICALLY STABLE. CM WILL CONTINUE TO FOLLOW AND ASSIST NEEDED WITH DISCHARGE PLANNING / NEEDS. Quality Control Analyst: Jessica Boston DCPIA - Discharge Planning Initial Assessment Updated by [id number]: Jessica Boston on 06/07/19 5:48 pm * Is the patient Alert and Oriented? Yes * How many steps to enter\exit or inside your home? Last DP export: 06/10/19 4:45 pm Patient Name: XAVIER MEJIA Page [id number] at 0903 All edits/amendments must be made on the electronic document DICTATION DATE: 06/11/19901 PURCHASING SPECIALIST: LLOYD 06/11/19901 RPT#: [id number] DC DATE: STATUS: ADM IN [facility] [address] [place] [address] END OF REPORT
[2019-06-11 09:31] VITALS: BP 156/106
[2019-06-11 10:19] LABS: BILIRUBIN NEGATIVE (NEGATIVE); GLUCOSE NEGATIVE (NEGATIVE); KETONE NEGATIVE (NEGATIVE); NITRITE POSITIVE (NEGATIVE); UROBILINOGEN NORMAL (NORMAL)
[2019-06-11 10:20] LABS: BACTERIA FEW /hpf (NEGATIVE); EPITHELIAL CELLS 0-5 /hpf (0-5); RED CELLS - URINE RARE /hpf (0-5)
--- NOTE | 2019-06-11 10:44 | NUR ---
MEDICATED FOR PAIN AND NAUSEA AT THIS TIME. NO DISTRESS. SITTER REMAINS AT BEDSIDE.
[2019-06-11] MEDS ORDERED: CARDIZEM120 MG PO (10:53)
[2019-06-11] MEDS ORDERED: SEROQUEL300 MG PO (10:55)
[2019-06-11] MEDS ORDERED: PINDOLOL10 MG PO (10:55)
[2019-06-11] MEDS ORDERED: HYDROCHLOROTHIA25 MG PO (10:56)
[2019-06-11] MEDS ORDERED: UROCIT-K10 MEQ PO (10:58)
--- NOTE | 2019-06-11 10:58 | MORECARE ---
CASE MANAGEMENT DISCHARGE SUMMARY PATIENT: XAVIER MEJIA UNIT: [id number] ADM DATE: 06/05/19 AGE: 39 : 78 SEX: F ROOM/BED: D.2110 AUTHOR: CAMILLE,DOC PHYSICIAN: REFERRING PHYSICIAN: JESSICA SAN MD DATE OF SERVICE: 06/11/19 Discharge Plan Patient Name: XAVIER MEJIA Facility: [facility]:[place] : 1980 Planned Disposition: Inpatient Psych Facility Anticipated Discharge Date: 06/11/19 Discharge Date: Expected LOS: 6 Initial Reviewer: [id number] Initial Review Date: 06/05/2019 Generated: 06/11/19 11:57 am Comments DCP- Discharge Planning Updated by [email or web address]: Jeremy Mckeon on 06/11/19 7:[address] Patient Name: XAVIER MEJIA Encounter No: [id number] : 1980 Primary Insurance: NOV[employer]YS MANAGED MEDICAID Anticipated DC Date: 06-10-2019 Planned Disposition: Inpatient Psych Facility External Planned Provider: FIRST ACCEPTING INPATIENT [facility]IATRIC [facility] DCP follow-up note: CM SPOKE TO BEDSIDE NURSE WHO INFORMED CM THAT PT DOES NOT WANT TO GO TO [facility]. CM MET WITH PT IN ROOM WHO EXPLAINED THAT SHE DATED A MAN WHO STILL WORKS AT THE [place] [facility]; PT REPORTS SHE WILL GO TO ANY OTHER FACILITY [facility] AND THAT HER PARENTS WILL PROVIDE TRANSPORTATION HOME AT DISCHARGE FROM INPATIENT PSYCHIATRIC CARE. PT CONTINUES TO BE A VOLUNTARY ADMIT. CM CALLED [facility], , SPOKE TO AURORA WHO WILL CONTINUE TO SEEK PLACEMENT AND WILL NOTE TO PT'S TRANSFER REQUEST THAT SHE WILL NOT GO TO [facility] IN [place]. CM WAITING ACCEPTING INPATIENT PSYCHIATRIC FACILITY. Jeremy Mckeon, CASE GURWINDER DCP- Discharge Planning Updated by [id number]: Jeremy Mckeon on 06/10/19 4:[address] Patient Name: XAVIER MEJIA Encounter No: [id number] : 1980 Primary Insurance: NOVASYS MANAGED MEDICAID Anticipated DC Date: 06-10-2019 Planned Disposition: Inpatient Psych Facility External Planned Provider: FIRST ACCEPTING INPATIENT [facility]IATRIC F[facility] DCP follow-up note: DAISY SPOKE TO DR. RAJPUT IN CARE TEAM MEETING, [facility] CM CALLED [facility], , SPOKE TO ADORE AND PROVIDED REFERRAL INFORMATION. CM FAXED PLACEMENT PACKET TO [facility], . PT IS VOLUNTARY ADMIT. CM WAITING ACCEPTING INPATIENT PSYCHIATRIC FACILITY. Jeremy Mckeon, CASE MANAGEMENT DCP- Discharge Planning Updated by [id number]: Jessica Boston on 06/07/19 3:[address] Patient Name: XAVIER MEJIA Admission Status: ER Accout number: [id number] Admission Date: 06-05-2019 : 1980 Admission Diagnosis: Attending: JESSICA DIAZ Current LOS: 2 Anticipated DC Date: Planned Disposition: Primary Insurance: Arch[employer] MANAGED MEDICAID Discharge Planning Comments: PATIENT IS CURRENTLY ON VENT WITH POSSIBLE EXTUBATION LATER TODAY. PLAN FOR INPATIENT PSYCH PLACEMENT ONCE MEDICALLY STABLE. CM WILL CONTINUE TO FOLLOW AND ASSIST NEEDED WITH DISCHARGE PLANNING / NEEDS. Vibrator Equipment Tester: Jessica Boston DCPIA - Discharge Planning Initial Assessment Updated by [id number]: Jessica Boston on 06/07/19 5:48 pm * Is the patient Alert and Oriented? Yes * How many steps to enter\exit or inside your home? Last DP export: 06/11/19 8:03 a Patient Name: XAVIER MEJIA Page 88815 at 1058 All edits/amendments must be made on the electronic document DICTATION DATE: 06/11/19 1057 MANAGER PROJECT: LLOYD 06/11/19 1057 RPT#: [id number] DC DATE: STATUS: ADM IN [facility] [address] [place] [address] END OF REPORT
[2019-06-11] MEDS ORDERED: KLONOPIN0.5 MG PO (11:08)
[2019-06-11] MEDS ORDERED: TEMAZEPAM30 MG PO (11:08)
[2019-06-11] MEDS ORDERED: SINEQUAN100 MG PO (11:09)
[2019-06-11] MEDS ORDERED: PERCOCET 7.5/321 TAB PO (11:09)
[2019-06-11] MEDS ORDERED: FLOMAX0.4 MG PO (11:10)
[2019-06-11] MEDS ORDERED: ZANAFLEX4 MG PO (11:10)
[2019-06-11] MEDS ORDERED: OXYBUTYNIN CHLOR5 MG PO (11:10)
[2019-06-11] MEDS ORDERED: BUPROPION HCL150 M1 PO (11:11)
[2019-06-11] MEDS ORDERED: PHENERGAN25 M1 PO (11:12)
--- NOTE | 2019-06-11 11:12 | MORECARE ---
CASE MANAGEMENT DISCHARGE SUMMARY PATIENT: XAVIER MEJIA UNIT: [id number] ADM DATE: 06/05/19 AGE: 39 : [birth year] SEX: F ROOM/BED: D.1830 AUTHOR: CAMILLE,DOC PHYSICIAN: REFERRING PHYSICIAN: JESSICA SAN MD DATE OF SERVICE: 06/11/19 Discharge Plan Patient Name: XAVIER MEJIA Facility: [facility]:[place] : 1980 Planned Disposition: Inpatient Psych Facility Anticipated Discharge Date: 06/11/19 Discharge Date: Expected LOS: 6 Initial Reviewer: [id number] Initial Review Date: 06/05/2019 Generated: 06/11/19 12:11 pm Comments DCP- Discharge Planning Updated by [email or web address]: Jeremy Mckeon on 06/11/19 10:[address] Patient Name: XAVIER MEJIA Encounter No: [id number] : 1980 Primary Insurance: NOVASYS MANAGED MEDICAID Anticipated DC Date: 06-10-2019 Planned Disposition: Inpatient Psych Facility External Planned Provider: FIRST ACCEPTING INPATIENT [facility]IATRIC F[facility]ILITY [facility] DCP follow-up note: CM SPOKE TO BEDSIDE NURSE WHO INFORMED CM THAT PT DOES NOT WANT TO GO TO [facility]. CM MET WITH PT IN ROOM WHO EXPLAINED THAT SHE DATED A MAN WHO STILL WORKS AT THE [place] [facility]; PT REPORTS SHE WILL GO TO ANY OTHER FACILITY [facility] AND THAT HER PARENTS WILL PROVIDE TRANSPORTATION HOME AT DISCHARGE FROM INPATIENT PSYCHIATRIC CARE. PT CONTINUES TO BE A VOLUNTARY ADMIT. CM CALLED TRANSFER CENTER, , SPOKE TO AURORA WHO WILL CONTINUE TO SEEK PLACEMENT AND WILL NOTE TO PT'S TRANSFER REQUEST THAT SHE WILL NOT GO TO [facility] IN [place]. CM WAITING ACCEPTING INPATIENT PSYCHIATRIC FACILITY. Jeremy Mckeon, CASE MANAGEMENT Appended by Jeremy Mckeon on 06/11/2019 11:06 CDT: CM RECEIVED CALL FROM JOSE DOUGLAS, PT'S MOTHER, WHO REPORTS SPEAKING TO PT THIS MORINING AND WAS TOLD THAT CM TOLD PT THAT [facility] IN [place] IS THE ONLY FACILITY WITH AVAILABLE BED. JOSE INFORMED CM THAT SHE CALLED [facility] IN [place] AND THEY BOTH HAVE AVAILABLE BEDS. CM EXCUSED SELF FROM PHONE AND MET WITH PT IN ROOM WHO PROVIDED CM PERMISSION TO DISCUSS HER CARE AND TREATMENT WITH HER MOTHER. CM RESUMED CONVERSATION WITH PT'S MOTHER AND INFORMED JOSE THAT CM DID NOT TELL PT THAT [place] WAS THE ONLY BED OR THAT [facility] OR [facility] DID NOT HAVE AVAILABLE BEDS. JOSE STATES THAT THEY WANT PT IN A DUAL DIAGNOSIS FACILITY AND WANT CM TO NOTIFY WHOEVER IS DOING THE TRANSFER OF THEIR REQUEST. CM CALLED TRANSFER CENTER, , SPOKE TO AURORA WHO WILL CONTINUE TO SEEK PLACEMENT AND WILL NOTE TO PT'S TRANSFER REQUEST THAT SHE WILL NOT GO TO [facility] IN [place] AND PREFERENCES OF THE [facility] AND [facility] DUAL DIGNOSIS FACILITIES. CM WAITING ACCEPTING INPATIENT PSYCHIATRIC FACILITY. GUILLERMINA MATAMOROS MANAGEMENT DCP- Discharge Planning Updated by [id number]: Jeremy Mckeon on 06/10/19 4:[address] Patient Name: XAVIER MEJIA Encounter No: [id number] : 1980 Primary Insurance: NOVASYS MANAGED MEDICAID Anticipated DC Date: 06-10-2019 Planned Disposition: Inpatient Psych Facility External Planned Provider: FIRST ACCEPTING INPATIENT [facility]IATRIC [facility] DCP follow-up note: CM SPOKE TO DR. RAJPUT IN CARE TEAM MEETING, PT STABLE FOR DISCHARGE TO INPAITIENT PSYCHIATRIC FACILITY. CM CALLED [facility], , SPOKE TO ADORE AND PROVIDED REFERRAL INFORMATION. CM FAXED PLACEMENT PACKET TO [facility], . PT IS VOLUNTARY ADMIT. CM WAITING ACCEPTING INPATIENT PSYCHIATRIC FACILITY. GUILLERMINA Matamoros DCP- Discharge Planning Updated by [id number]: Jessica Boston on 06/07/19 3:[address] Patient Name: XAVIER MEJIA Admission Status: ER Accout number: [id number] Admission Date: 06-05-2019 : 1980 Admission Diagnosis: Attending: JESSICA DIAZ Current LOS: 2 Anticipated DC Date: Planned Disposition: Primary Insurance: NOVASYS MANAGED MEDICAID Discharge Planning Comments: PATIENT IS CURRENTLY ON VENT WITH POSSIBLE EXTUBATION LATER TODAY. PLAN FOR INPATIENT PSYCH PLACEMENT ONCE MEDICALLY STABLE. CM WILL CONTINUE TO FOLLOW AND ASSIST NEEDED WITH DISCHARGE PLANNING / NEEDS. Steam Turbine Operator: Jessica Boston DCPIA - Discharge Planning Initial Assessment Updated by [id number]: Jessica Boston on 06/07/19 5:48 pm * Is the patient Alert and Oriented? Yes * How many steps to enter\exit or inside your home? Last DP export: 06/11/19 9:58 a Patient Name: XAVIER MEJIA Page 70201 at 1112 All edits/amendments must be made on the electronic document DICTATION DATE: 06/11/19 1111 MARKETING DIRECTOR ASSISTED LIVING: DM 06/11/19 1111 RPT#: [id number] DC DATE: STATUS: ADM IN [facility] [address] [place] [address] END OF REPORT
[2019-06-11] MEDS ORDERED: MAXALT10 MG PO (11:13)
[2019-06-11] MEDS ORDERED: OMNICEF300 MG PO (11:26)
[2019-06-11] MEDS ORDERED: DIFLUCAN100 MG PO (11:27)
--- NOTE | 2019-06-11 11:33 | MORECARE ---
CASE MANAGEMENT DISCHARGE SUMMARY PATIENT: XAVIER MEJIA UNIT: [id number] ADM DATE: 06/05/19 AGE: 39 : [birth year] SEX: F ROOM/BED: D.7090 AUTHOR: CAMILLE,DOC PHYSICIAN: REFERRING PHYSICIAN: JESSICA SAN MD DATE OF SERVICE: 06/11/19 Discharge Plan Patient Name: XAVIER MEJIA Facility: [facility]:[place] : 1980 Planned Disposition: Inpatient Psych Facility Anticipated Discharge Date: 06/11/19 Discharge Date: Expected LOS: 6 Initial Reviewer: [id number] Initial Review Date: 06/05/2019 Generated: 06/11/19 12:33 pm Comments DCP- Discharge Planning Updated by [id number]: Jeremy Bonner on 06/11/19 10:[address] Patient Name: XAVIER MEJIA Encounter No: [id number] : 1980 Primary Insurance: NOVASYS MANAGED MEDICAID Anticipated DC Date: 06-10-2019 Planned Disposition: Inpatient Psych Facility External Planned Provider: FIRST ACCEPTING INPATIENT [facility]CHIATRIC FACILITY [facility] DCP follow-up note: CM SPOKE TO BEDSIDE NURSE WHO INFORMED CM THAT PT DOES NOT WANT TO GO TO [facility]. CM MET WITH PT IN ROOM WHO EXPLAINED THAT SHE DATED A MAN WHO STILL WORKS AT THE [place] [facility]; PT REPORTS SHE WILL GO TO ANY OTHER FACILITY [facility] AND THAT HER PARENTS WILL PROVIDE TRANSPORTATION HOME AT DISCHARGE FROM INPATIENT PSYCHIATRIC CARE. PT CONTINUES TO BE A VOLUNTARY ADMIT. CM CALLED TRANSFER CENTER, , SPOKE TO AURORA WHO WILL CONTINUE TO SEEK PLACEMENT AND WILL NOTE TO PT'S TRANSFER REQUEST THAT SHE WILL NOT GO TO [facility] IN [place]. CM WAITING ACCEPTING INPATIENT PSYCHIATRIC FACILITY. Jeremy Bonner, CASE MANAGEMENT Appended by Jeremy Bonner on 06/11/2019 11:06 CDT: CM RECEIVED CALL FROM JOSE DOUGLAS, PT'S MOTHER, WHO REPORTS SPEAKING TO PT THIS MORINING AND WAS TOLD THAT CM TOLD PT THAT [facility] IN [place] IS THE ONLY FACILITY WITH AVAILABLE BED. JOSE INFORMED CM THAT SHE CALLED [facility] AND [facility] IN [place] AND THEY BOTH HAVE AVAILABLE BEDS. CM EXCUSED SELF FROM PHONE AND MET WITH PT IN ROOM WHO PROVIDED CM PERMISSION TO DISCUSS HER CARE AND TREATMENT WITH HER MOTHER. CM RESUMED CONVERSATION WITH PT'S MOTHER AND INFORMED JOSE THAT CM DID NOT TELL PT THAT [place] WAS THE ONLY BED OR THAT [facility] OR [facility] DID NOT HAVE AVAILABLE BEDS. JOSE STATES THAT THEY WANT PT IN A DUAL DIAGNOSIS FACILITY AND WANT CM TO NOTIFY WHOEVER IS DOING THE TRANSFER OF THEIR REQUEST. CM CALLED TRANSFER CENTER, , SPOKE TO AURORA WHO WILL CONTINUE TO SEEK PLACEMENT AND WILL NOTE TO PT'S TRANSFER REQUEST THAT SHE WILL NOT GO TO [facility] IN [place] AND PREFERENCES OF THE [facility] AND [facility] DUAL DIGNOSIS FACILITIES. CM WAITING ACCEPTING INPATIENT PSYCHIATRIC FACILITY. JEREMY BONNER, CASE MANAGEMENT Appended by Jeremy Bonner on 06/11/2019 11:30 CDT: CM RECEIVED CALL FROM TRANSFER CENTER, , SPOKE TO JESSICA WHO INFORMED CM THAT PT HAS BEEN ACCEPTED AT [facility] IN [place] AND PREFERENCES OF THE [facility] AND [facility] HAVE NOT RESPONDED TO REQUESTS FOR PLACEMENT AT THIS TIME. PT WILL NEED TO BE ON ORAL MEDICATIONS FOR ACCEPTANCE. DAISY SPOKE TO PT IN ROOM, NOTIFIED OF ABOVE, PT IN AGREEMENT WITH TRANSFER. ASHWIN DOYLE NOTIFIED WHO WILL DISCHARGE PT TO [facility] TODAY. CM NOTIFIED AUR[facility]A AT [facility]SF[facility] WHO INFORMED CM TO FAX DISCHARGE INFORMATION TO HER AT TRANSFER CENTER WHEN COMLPETED. CM TO FAX DISCHARGE INFORMATION TO TRANSFER CENTER AT [phone]. TRANSFER CENTER TO PROVIDE NUMBER FOR NURSE REPORT TO [facility] WELL ACCEPTING PHYSICIAN NAME AND ROOM N UMBER. PT TO TRANSPORT VIA AMBULANCE. JEREMY BONNER, CASE MANAGEMENT . DCP- Discharge Planning Updated by [id number]: Jeremy Bonner on 06/10/19 4:[address] Patient Name: XAVIER MEJIA Encounter No: [id number] : 1980 Primary Insurance: [facility] MEDICA[facility] Anticipated DC Date: 06-10-2019 Planned Disposition: Inpatient Psych Facility External Planned Provider: FIRST ACCEPTING INPATIENT [facility]YCHIATRIC FACILITY [facility] DCP follow-up note: CM SPOKE TO DR. RAJPUT IN CARE TEAM MEETING, [facility] CM CALLED [facility], , SPOKE TO ADORE AND PROVIDED REFERRAL INFORMATION. CM FAXED PLACEMENT PACKET TO [facility], . PT IS VOLUNTARY ADMIT. CM WAITING ACCEPTING INPATIENT PSYCHIATRIC FACILITY. Jeremy Bonner, CASE MANAGEMENT DCP- Discharge Planning Updated by [id number]: Jessica Boston on 06/07/19 3:[address] Patient Name: XAVIER MEJIA Admission Status: ER Accout number: [id number] Admission Date: 06-05-2019 : 1980 Admission Diagnosis: Attending: JESSICA DIAZ Current LOS: 2 Anticipated DC Date: Planned Disposition: Primary Insurance: [employer] MANAGED MEDICAID Discharge Planning Comments: PATIENT IS CURRENTLY ON VENT WITH POSSIBLE EXTUBATION LATER TODAY. PLAN FOR INPATIENT PSYCH PLACEMENT ONCE MEDICALLY STABLE. CM WILL CONTINUE TO FOLLOW AND ASSIST NEEDED WITH DISCHARGE PLANNING / NEEDS. Commissioner Of Relocation Services: Jessica Boston DCPIA - Discharge Planning Initial Assessment Updated by [email or web address]: Jessica Boston on 06/07/19 5:48 pm * Is the patient Alert and Oriented? Yes * How many steps to enter\exit or inside your home? Last DP export: 06/11/19 10:12 a Patient Name: XAVIER MEJIA Page [id number] at 1133 All edits/amendments must be made on the electronic document DICTATION DATE: 06/11/19 1133 SENIOR FINANCIAL: LLOYD 06/11/19 1133 RPT#: [id number] DC DATE: STATUS: ADM IN [facility] [address] [place] [address] END OF REPORT
--- NOTE | 2019-06-11 11:38 | NUR ---
NOTIFIED PROPRIETARY TRADER OF THE NEED FOR PICC REMOVAL.
--- NOTE | 2019-06-11 11:50 | NUR ---
USING STERILE TECHNIQUE, RIGHT UPPER ARM PICC REMOVED. STERILE DRESSING APPLIED AND DATED. FAWN DOWELL IN TO PULL RIGHT CVL.
--- NOTE | 2019-06-11 11:55 | NUR ---
RIGHT SUBCLAVIAN TRIPLE LUMEN CENTRAL LINE DISCONTINUED AT THIS TIME. CATHETER TIP INTACT. PRESSURE HELD TO SITE. PATIENT REMAINS LYING FLAT AT THIS TIME. 4X4 AND CLEAR TEGADERM APPLIED TO CREATE A PRESSURE DRESSING. NO BLEEDING FROM SITE.
--- NOTE | 2019-06-11 12:26 | NUR ---
REPORT CALLED TO ASHTYN MCKAY RN AT [facility] AT [phone]. DR.DAVID Friedman IS THE ACCEPTING PHYSICIAN. PATIENT GOING TO ROOM 827, BED 1.
--- NOTE | 2019-06-11 12:28 | MORECARE ---
CASE MANAGEMENT DISCHARGE SUMMARY PATIENT: XAVIER MEJIA UNIT: [id number] ADM DATE: 06/05/19 AGE: 39 : [birth year] SEX: F ROOM/BED: D.9590 AUTHOR: CAMILLE,DOC PHYSICIAN: REFERRING PHYSICIAN: JESSICA SAN MD DATE OF SERVICE: 06/11/19 Discharge Plan Patient Name: XAVIER MEJIA Facility: [facility]:[place] : 1980 Planned Disposition: Inpatient Psych Facility Anticipated Discharge Date: 06/11/19 Discharge Date: Expected LOS: 6 Initial Reviewer: [id number] Initial Review Date: 06/05/2019 Generated: 06/11/19 1:28 pm Comments DCP- Discharge Planning Updated by [id number]: Jeremy Bonner on 06/11/19 10:[address] Patient Name: XAVIER MEJIA Encounter No: [id number] : 1980 Primary Insurance: [employer] MA[employer]GED MEDICAID Anticipated DC Date: 06-10-2019 Planned Disposition: Inpatient Psych Facility External Planned Provider: FIRST ACCEPTING INPATIENT PSYCHIATRIC FACILITY [facility] DCP follow-up note: CM SPOKE TO BEDSIDE NURSE WHO INFORMED CM THAT PT DOES NOT WANT TO GO TO [facility]. CM MET WITH PT IN ROOM WHO EXPLAINED THAT SHE DATED A MAN WHO STILL WORKS AT THE [facility]; PT REPORTS SHE WILL GO TO ANY OTHER FACILITY [facility] AND THAT HER PARENTS WILL PROVIDE TRANSPORTATION HOME AT DISCHARGE FROM INPATIENT PSYCHIATRIC CARE. PT CONTINUES TO BE A VOLUNTARY ADMIT. CM CALLED TRANSFER CENTER, , SPOKE TO AURORA WHO WILL CONTINUE TO SEEK PLACEMENT AND WILL NOTE TO PT'S TRANSFER REQUEST THAT SHE WILL NOT GO TO [facility] IN [place]. CM WAITING ACCEPTING INPATIENT PSYCHIATRIC FACILITY. Jeremy Bonner, CASE MANAGEMENT Appended by Jeremy Bonner on 06/11/2019 11:06 CDT: CM RECEIVED CALL FROM JOSE DOUGLAS, PT'S MOTHER, WHO REPORTS SPEAKING TO PT THIS MORINING AND WAS TOLD THAT CM TOLD PT THAT [facility] IN [place] IS THE ONLY FACILITY WITH AVAILABLE BED. JOSE INFORMED CM THAT SHE CALLED [facility] AND [facility] IN [place] AND THEY BOTH HAVE AVAILABLE BEDS. CM EXCUSED SELF FROM PHONE AND MET WITH PT IN ROOM WHO PROVIDED CM PERMISSION TO DISCUSS HER CARE AND TREATMENT WITH HER MOTHER. CM RESUMED CONVERSATION WITH PT'S MOTHER AND INFORMED JOSE THAT CM DID NOT TELL PT THAT [facility] WAS THE ONLY BED OR THAT [facility] OR [facility] DID NOT HAVE AVAILABLE BEDS. JOSE STATES THAT THEY WANT PT IN A [facility] FACILITY AND WANT CM TO NOTIFY WHOEVER IS DOING THE TRANSFER OF THEIR REQUEST. CM CALLED TRANSFER CENTER, , SPOKE TO AURORA WHO WILL CONTINUE TO SEEK PLACEMENT AND WILL NOTE TO PT'S TRANSFER REQUEST THAT SHE WILL NOT GO TO [facility] IN [place] AND PREFERENCES OF THE [facility] AND [facility] DUAL [facility] FACILITIES. CM WAITING ACCEPTING INPATIENT PSYCHIATRIC FACILITY. JEREMY BONNER, CASE MANAGEMENT Appended by Jeremy Bonner on 06/11/2019 11:30 CDT: CM RECEIVED CALL FROM TRANSFER CENTER, , SPOKE TO JESSICA WHO INFORMED CM THAT PT HAS BEEN ACCEPTED AT [facility] IN [place] AND [facility]REF[facility]ENCES OF THE [facility] AND [facility] HAVE NOT RESPONDED TO REQUESTS FOR PLACEMENT AT THIS TIME. PT WILL NEED TO BE ON ORAL MEDICATIONS FOR ACCEPTANCE. DAISY SPOKE TO PT IN ROOM, NOTIFIED OF ABOVE, PT IN AGREEMENT WITH TRANSFER. ASHWIN DOYLE NOTIFIED WHO WILL DISCHARGE PT TO [facility] TODAY. CM NOTIFIED AURORA AT TRANSFER CENTER WHO INFORMED CM TO FAX DISCHARGE INFORMATION TO HER AT TRANSFER CENTER WHEN COMLPETED. CM TO FAX DISCHARGE INFORMATION TO TRANSFER CENTER AT [phone]. TRANSFER CENTER TO PROVIDE NUMBER FOR NURSE REPORT TO [facility] WELL ACCEPTING PHYSICIAN NAME AND ROOM N UMBER. PT TO TRANSPORT VIA AMBULANCE. JEREMY BONNER, CASE MANAGEMENT . DCP- Discharge Planning Updated by [id number]: Jeremy Bonner on 06/10/19 4:[address] Patient Name: XAVIER MEJIA Encounter No: [id number] : 1980 Primary Insurance: [facility] Anticipated DC Date: 06-10-2019 Planned Disposition: Inpatient Psych Facility External Planned Provider: FIRST ACCEPTING INPATIENT [facility]YCHIATRIC FACILITY [facility] DCP follow-up note: CM SPOKE TO DR. RAJPUT IN CARE TEAM MEETING, PT [facility]. CM CALLED [facility], , SPOKE TO [facility] AND PROVIDED REFERRAL INFORMATION. CM FAXED PLACEMENT PACKET TO [facility] AT [facility], . PT IS VOLUNTARY ADMIT. CM WAITING ACCEPTING INPATIENT PSYCHIATRIC FACILITY. Jeremy Bonner, CASE MANAGEMENT DCP- Discharge Planning Updated by [id number]: Jessica Boston on 06/07/19 3:[address] Patient Name: XAVIER MEJIA Admission Status: ER Accout number: [id number] Admission Date: 06-05-2019 : 1980 Admission Diagnosis: Attending: JESSICA DIAZ Current LOS: 2 Anticipated DC Date: Planned Disposition: Primary Insurance: [employer] MANAGED MEDICAID Discharge Planning Comments: PATIENT IS CURRENTLY ON VENT WITH POSSIBLE EXTUBATION LATER TODAY. PLAN FOR INPATIENT PSYCH PLACEMENT ONCE MEDICALLY STABLE. CM WILL CONTINUE TO FOLLOW AND ASSIST NEEDED WITH DISCHARGE PLANNING / NEEDS. Vest Busheler: Jessica Boston DCPIA - Discharge Planning Initial Assessment Updated by [id number]: Jessica Boston on 06/07/19 5:48 pm * Is the patient Alert and Oriented? Yes * How many steps to enter\exit or inside your home? Last DP export: 06/11/19 10:33 a Patient Name: XAVIER MEJIA Page [id number] at 1228 All edits/amendments must be made on the electronic document DICTATION DATE: 06/11/19 1228 POLICE DETENTION ATTENDANT: LLOYD 06/11/19 1228 RPT#: [id number] DC DATE: STATUS: ADM IN [facility] [address] [place] [address] END OF REPORT
--- NOTE | 2019-06-11 12:37 | MORECARE ---
CASE MANAGEMENT DISCHARGE SUMMARY PATIENT: XAVIER MEJIA UNIT: [id number] ADM DATE: 06/05/19 AGE: 39 : [birth year] SEX: F ROOM/BED: D.8130 AUTHOR: CAMILLE,DOC PHYSICIAN: REFERRING PHYSICIAN: JESSICA SAN MD DATE OF SERVICE: 06/11/19 Discharge Plan Patient Name: XAVIER MEJIA Facility: [facility]:[place] : 1980 Planned Disposition: Inpatient Psych Facility Anticipated Discharge Date: 06/11/19 Discharge Date: Expected LOS: 6 Initial Reviewer: [email or web address] Initial Review Date: 06/05/2019 Generated: 06/11/19 1:36 pm Comments DCP- Discharge Planning Updated by [id number]: Jeremy Bonner on 06/11/19 11:[address] Patient Name: XAVIER MEJIA Encounter No: [id number] : 1980 Primary Insurance: [employer] MANAGED MEDICAID Anticipated DC Date: 06-11-2019 Planned Disposition: Inpatient Psych Facility External Planned Provider: [facility] DCP follow-up note: CM RECEIVED MESSAGE FROM TRANSFER CENTER, PT WILL ADMIT TO ROOM 827 BED 1 AT [facility] IN [facility]. ACCEPTING DR IS DR. DELILAH JAMES. NURSE REPORT TO BE CALLED TO [phone]. CM FAXED DISCHARGE INFORMATION TO TRANSFER CENTER AT [phone]. JEREMY BONNER, CASE MANAGEMENT Jeremy Bonner DCP- Discharge Planning Updated by [id number]: Jeremy Bonner on 06/11/19 10:[address] Patient Name: XAVIER MEJIA Encounter No: [id number] : 1980 Primary Insurance: [employer] MANAGED MEDICAID Anticipated DC Date: 06-10-2019 Planned Disposition: Inpatient Psych Facility External Planned Provider: [facility] follow-up note: CM SPOKE TO BEDSIDE NURSE WHO INFORMED CM THAT PT DOES NOT WANT TO GO TO [facility]. CM MET WITH PT IN ROOM WHO EXPLAINED THAT SHE DATED A MAN WHO STILL WORKS AT THE [facility]; PT REPORTS SHE WILL GO TO ANY OTHER FACILITY [facility] AND THAT HER PARENTS WILL PROVIDE TRANSPORTATION HOME AT DISCHARGE FROM INPATIENT PSYCHIATRIC CARE. PT CONTINUES TO BE A VOLUNTARY ADMIT. CM CALLED TRANSFER CENTER, , SPOKE TO AURORA WHO WILL CONTINUE TO SEEK PLACEMENT AND WILL NOTE TO PT'S TRANSFER REQUEST THAT SHE WILL NOT GO TO [facility] IN [place]. CM WAITING ACCEPTING INPATIENT PSYCHIATRIC FACILITY. Jeremy Bonner, CASE MANAGEMENT Appended by Jeremy Bonner on 06/11/2019 11:06 CDT: CM RECEIVED CALL FROM JOSE STELLA, PT'S MOTHER, WHO REPORTS SPEAKING TO PT THIS MORINING AND WAS TOLD THAT CM TOLD PT THAT [facility] IN [place] IS THE ONLY FACILITY WITH AVAILABLE BED. JOSE INFORMED CM THAT SHE CALLED [facility] AND [facility] IN [place] AND THEY BOTH HAVE AVAILABLE BEDS. CM EXCUSED SELF FROM PHONE AND MET WITH PT IN ROOM WHO PROVIDED CM PERMISSION TO DISCUSS HER CARE AND TREATMENT WITH HER MOTHER. CM RESUMED CONVERSATION WITH PT'S MOTHER AND INFORMED JOSE THAT CM DID NOT TELL PT THAT [place] WAS THE ONLY BED OR THAT [facility] OR [facility] DID NOT HAVE AVAILABLE BEDS. JOSE STATES THAT THEY WANT PT IN A [facility] FACILITY AND WANT CM TO NOTIFY WHOEVER IS DOING THE TRANSFER OF THEIR REQUEST. CM CALLED TRANSFER CENTER, , SPOKE TO AURORA WHO WILL CONTINUE TO SEEK PLACEMENT AND WILL NOTE TO PT'S TRANSFER REQUEST THAT SHE WILL NOT GO TO [facility] AND [facility] THE [facility] AND [facility] DUAL DIGNOSIS FACILITIES. CM WAITING ACCEPTING INPATIENT PSYCHIATRIC FACILITY. JEREMY BONNER, CASE MANAGEMENT Appended by Jeremy Bonner on 06/11/2019 11:30 CDT: CM RECEIVED CALL FROM TRANSFER CENTER, , SPOKE TO JESSICA WHO INFORMED CM THAT PT HAS BEEN ACCEPTED AT [facility] AND PREFERENCES OF THE [facility] AND [facility] HAVE NOT RESPONDED TO REQUESTS FOR PLACEMENT AT THIS TIME. PT WILL NEED TO BE ON ORAL MEDICATIONS FOR ACCEPTANCE. CM SPOKE TO PT IN ROOM, NOTIFIED OF ABOVE, PT IN AGREEMENT WITH TRANSFER. ASHWIN DOYLE NOTIFIED WHO WILL DISCHARGE PT TO [facility] TODAY. CM NOTIFIED AURORA AT TRANSFER CENTER WHO INFORMED CM TO FAX DISCHARGE INFORMATION TO HER AT [facility] WHEN COMLPETED. CM TO FAX DISCHARGE INFORMATION TO [facility] AT [phone]. TRANSFER CENTER TO PROVIDE NUMBER FOR NURSE REPORT TO [facility] WELL ACCEPTING PHYSICIAN NAME AND ROOM N UMB. PT TO TRANSPORT VIA AMBULANCE. GUILLERMINA MATAMOROS MANAGEMENT . DCP- Discharge Planning Updated by [id number]: Jeremy Bonner on 06/10/19 4:[address] Patient Name: XAVIER MEJIA Encounter No: [id number] : 1980 Primary Insurance: [employer] MANAGED MEDICAID Anticipated DC Date: 06-10-2019 Planned Disposition: Inpatient Psych Facility External Planned Provider: FIRST ACCEPTING INPATIENT PSYCHIATRIC FACILITY [facility] DCP follow-up note: CM SPOKE TO DR. RAJPUT IN CARE TEAM MEETING, PT STABLE FOR DISCHARGE TO [facility]. CM CALLED [facility]SF[facility], , SPOKE TO [facility] AND PROVIDED REFERRAL INFORMATION. CM FAXED PLACEMENT PACKET TO [facility] AT [facility], . PT IS VOLUNTARY ADMIT. CM WAITING ACCEPTING INPATIENT PSYCHIATRIC FACILITY. GUILLERMINA Matamoros DCP- Discharge Planning Updated by [id number]: Jessica Boston on 06/07/19 3:[address] Patient Name: XAVIER MEJIA Admission Status: ER Accout number: [id number] Admission Date: 06-05-2019 : 1980 Admission Diagnosis: Attending: JESSICA DIAZ Current LOS: 2 Anticipated DC Date: Planned Disposition: Primary Insurance: [employer] MANAGED MEDICAID Discharge Planning Comments: PATIENT IS CURRENTLY ON VENT WITH POSSIBLE EXTUBATION LATER TODAY. PLAN FOR INPATIENT PSYCH PLACEMENT ONCE MEDICALLY STABLE. CM WILL CONTINUE TO FOLLOW AND ASSIST NEEDED WITH DISCHARGE PLANNING / NEEDS. Supervisor Coal Handling: Jessica Boston DCPIA - Discharge Planning Initial Assessment Updated by [id number]: Jessica Boston on 06/07/19 5:48 pm * Is the patient Alert and Oriented? Yes * How many steps to enter\exit or inside your home? Last DP export: 06/11/19 11:28 a Patient Name: XAVIER MEJIA Page [id number] at 1237 All edits/amendments must be made on the electronic document DICTATION DATE: 06/11/19 1236 SOLDER MAKING SUPERVISOR: LLOYD 06/11/19 1236 RPT#: [id number] DC DATE: STATUS: ADM IN [address] [facility] [place] [address] END OF REPORT
--- NOTE | 2019-06-11 12:39 | NUR ---
DISCHARGE INSTRUCTIONS PROVIDED TO PATIENT AT THIS TIME. PATIENT IS TRANSFERRING TO [facility] IN [place], [facility]. PATIENT VERBALIZED UNDERSTANDING OF ALL DISCHARGE INSTRUCTIONS.
--- NOTE | 2019-06-11 12:41 | NUR ---
WAITING FOR WARP STARTER TO COME UP AND SIGN TRANSFER FORM BEFORE CALLING AMBULANCE FOR TRANSFER SERVICES.
--- NOTE | 2019-06-11 12:56 | NUR ---
LAURENT CALLED FOR TRANSPORT TO [facility] IN [place], SPOKE WITH AMY. WEST 45 MINUTES TO 1HOUR.
[2019-06-11 13:43] VITALS: BP 144/106
--- NOTE | 2019-06-11 13:50 | NUR ---
PATIENT LEFT UNIT VIA STRETCHER WITH EMS AT THIS TIME. PATIENT DISCHARGE TO [facility] FACILITY. PATIENT LEFT UNIT WITH ALL PERSONAL BELONGINGS IN STABLE CONDITION. ASHTYN MCKAY AT [facility] CALLED TO LET HER KNOW THAT PATIENT HAS NOW LEFT THE UNIT.
[2019-06-13 14:09] LABS: FUNGUS MYCOLOGY CULTURE Preliminary report (())
== END 2019-06-11 13:54 | disposition short-term general hospital (02) | DRG 917 ==
LOC: D.ER 11:45 → D.ICU 14:28 → D.M2 06-08 16:11
PROVIDERS: Emergency Medicine; Internal Medicine Nephrology; Internal Medicine Pulmonary Disease; ADMIT Family Medicine; ATTEND Family Medicine
PROC: 05HY33Z Insertion of Infusion Device into Upper Vein, Percutaneous Approach (ICD-10-PCS; principal; 2019-06-05)
PROC: 5A1945Z Respiratory Ventilation, 24-96 Consecutive Hours (ICD-10-PCS; 2019-06-05)
PROC: 0BH17EZ Insertion of Endotracheal Airway into Trachea, Via Natural or Artificial Opening (ICD-10-PCS; 2019-06-05)
PROC: 05H533Z Insertion of Infusion Device into Right Subclavian Vein, Percutaneous Approach (ICD-10-PCS; 2019-06-06)
PROC: 0B928ZZ Drainage of Carina, Via Natural or Artificial Opening Endoscopic (ICD-10-PCS; 2019-06-07)
PROC: 0B948ZZ Drainage of Right Upper Lobe Bronchus, Via Natural or Artificial Opening Endoscopic (ICD-10-PCS; 2019-06-07)
PROC: 0B988ZZ Drainage of Left Upper Lobe Bronchus, Via Natural or Artificial Opening Endoscopic (ICD-10-PCS; 2019-06-07)
PROC: 0B918ZZ Drainage of Trachea, Via Natural or Artificial Opening Endoscopic (ICD-10-PCS; 2019-06-07)
PROC: 0B968ZZ Drainage of Right Lower Lobe Bronchus, Via Natural or Artificial Opening Endoscopic (ICD-10-PCS; 2019-06-07)
PROC: 0B9B8ZZ Drainage of Left Lower Lobe Bronchus, Via Natural or Artificial Opening Endoscopic (ICD-10-PCS; 2019-06-07)
DX: T43.592A Poisoning by other antipsychotics and neuroleptics, intentional self-harm, initial encounter (principal); J96.90 Respiratory failure, unspecified, unspecified whether with hypoxia or hypercapnia; J15.6 Pneumonia due to other Gram-negative bacteria; N17.9 Acute kidney failure, unspecified; N39.0 Urinary tract infection, site not specified; E87.2 Acidosis; T46.1X2A Poisoning by calcium-channel blockers, intentional self-harm, initial encounter; T38.0X2A Poisoning by glucocorticoids and synthetic analogues, intentional self-harm, initial encounter; D64.9 Anemia, unspecified; R00.1 Bradycardia, unspecified; I95.9 Hypotension, unspecified; E83.52 Hypercalcemia; E83.42 Hypomagnesemia